=== PATIENT | female | born 1980 | race Caucasian/White ===

== ENCOUNTER 2018-11-07 07:25 | Emergency (ER) | payer MEDICAID ==
[2018-11-07] MEDS: ONDANSETRON 4 MG INJ IV ×2 (08:41→13:20)
[2018-11-07] MEDS: KETOROLAC 30 MG INJ IV (08:41)
[2018-11-07 08:43] LABS: ADD MAN DIFF? NO
[2018-11-07 08:47] LABS: WHITE BLOOD COUNT 7.4 10^3/ul (4.8-10.8)
[2018-11-07 08:47] LABS: ABNORMAL IP MESSAGE 1; BASOPHIL # 0.1 10^3/ul (0.0-0.1); BASOPHILS % 0.7 % (0.0-2.0); EOSINOPHILS # 0.1 10^3/ul (0.0-0.5); EOSINOPHILS % 1.4 % (0.0-7.0); HEMATOCRIT 27.8 % (37.0-47.0); HEMOGLOBIN 7.6 g/dl (12.0-16.0); LYMPHOCYTES # 1.3 10^3/ul (0.8-2.9); LYMPHOCYTES % 17.2 % (15.0-51.0); MEAN CORPUSCULAR HEMOGLOBIN 20.9 pg (29.0-33.0); MEAN CORPUSCULAR HGB CONC 27.3 g/dl (32.0-37.0); MEAN CORPUSCULAR VOLUME 76.6 fl (82.0-101.0); MEAN PLATELET VOLUME 8.7 fl (7.4-10.4); MONOCYTE # 0.6 10^3/ul (0.3-0.9); MONOCYTES % 8.1 % (0.0-11.0); NEUTROPHIL # 5.3 10^3/ul (1.6-7.5); NEUTROPHILS % 72.1 % (39.0-77.0); PLATELET COUNT 568 10^3/UL (140-415); RED BLOOD COUNT 3.63 10^6/ul (4.20-5.40); RED CELL DISTRIBUTION WIDTH 17.6 % (11.5-14.5)
[2018-11-07 08:49] LABS: POSITIVE DIFF @See below
[2018-11-07 08:57] LABS: ADD UMIC YES; UR ASCORBIC ACID NEGATIVE (NEGATIVE); UR BACTERIA FEW /HPF (NONE SEEN); UR BILIRUBIN (Dip) NEGATIVE (NEGATIVE); UR BLOOD (Dip) NEGATIVE (NEGATIVE); UR CLARITY CLEAR (CLEAR); UR COLOR STRAW (YELLOW); UR GLUCOSE (Dip) NEGATIVE (NEGATIVE); UR KETONES (Dip) NEGATIVE (NEGATIVE); UR LEUKOCYTE ESTERASE (Dip) NEGATIVE Leu/ul (NEGATIVE); UR NITRITE (Dip) POSITIVE (NEGATIVE); UR RBC 0 /HPF (0-5); UR SPECIFIC GRAVITY (Dip) 1.001 (1.003-1.030); UR SQUAMOUS EPITHELIAL CELL FEW /HPF (FEW); UR TOTAL PROTEIN (Dip) NEGATIVE (NEGATIVE); UR UROBILINOGEN (Dip) NEGATIVE (NEGATIVE); UR WBC 0 /HPF (0-5)
[2018-11-07 09:18] LABS: ALANINE AMINOTRANSFERASE 32 IU/L (13-69); ALBUMIN 4.3 g/dl (3.3-4.9); ALBUMIN/GLOBULIN RATIO 1.16; ALKALINE PHOSPHATASE 151 IU/L (42-121); ANION GAP 11 (5-13); ASPARTATE AMINO TRANSFERASE 46 IU/L (15-46); BLOOD UREA NITROGEN 9 mg/dl (7-20); CALCIUM 9.6 mg/dl (8.4-10.2); CARBON DIOXIDE 27 mmol/L (21-31); CHLORIDE 100 mmol/L (97-110); CREATININE 0.38 mg/dl (0.44-1.00); Estimated GFR > 60 mL/min (>60); GLUCOSE 109 mg/dl (70-220); LIPASE 161 U/L (23-300); POTASSIUM 3.8 mmol/L (3.5-5.1); SODIUM 138 mmol/L (135-144)
[2018-11-07 09:29] LABS: TROPONIN-I < 0.012 ng/ml (0.000-0.120)
[2018-11-07 11:12] LABS: BARBITURATES Negative (NEGATIVE); BENZODIAZEPINES Negative (NEGATIVE); CANNABINOIDS Negative (NEGATIVE); COCAINE Negative (NEGATIVE); OPIATES Negative (NEGATIVE)
[2018-11-07 11:13] LABS: AMPHETAMINE/METHAMPHETAMINE Positive (NEGATIVE)
[2018-11-07 11:26] LABS: ETHANOL < 10.0 mg/dl (0-0); SALICYLATE < 1.0 mg/dl (5.0-30.0)
[2018-11-07 11:26] LABS: ACETAMINOPHEN < 10.0 ug/ml (10.0-30.0)
[2018-11-07] MEDS ORDERED: CHLORPROMAZINE 25 MG INJ IM (15:30)
[2018-11-07] MEDS: ACETAMINOPHEN 325 MG TAB PO (17:31)
[2018-11-07] MEDS: MULTIVITAMINS THERAPEUTIC TAB PO (17:31)
[2018-11-07] MEDS: THIAMINE 100 MG TAB PO (17:31)
[2018-11-07] MEDS: DIPHTH/TET/ACEL PERTUSS (ADULT) 0.5 ML VIAL IM* (17:32)
[2018-11-07] MEDS: ONDANSETRON (ODT) 4 MG TAB ODT (17:46)
[2018-11-08] MEDS: KETOROLAC 30 MG INJ IM (00:18)
[2018-11-08] MEDS: OLANZAPINE 5 MG TAB PO (00:18)
== END 2018-11-08 00:50 ==
LOC: E/R 11-08 00:50 → FTE 07:25
DX: R10.11 Right upper quadrant pain (principal); D64.9 Anemia, unspecified; F32.2 Major depressive disorder, single episode, severe without psychotic features; R11.2 Nausea with vomiting, unspecified; Z23 Encounter for immunization
CPT/HCPCS: 36415; 71045; 76705; 80053; 80307; 81001; 81025; 83690; 84484; 85025; 90471; 90715; 93005; 96372; 96374; 96375; 96376; 99285-25